=== PATIENT | male | born 1985 ===

== ENCOUNTER → 2020-12-31 06:30 | Outpatient (CLI) | payer OTHER ==
[~2020-12-31 06:30] MED LIST: NABUMETONE750 MG PO
== END | disposition home or self-care (01) ==
LOC: LAB 06:30
PROVIDERS: ATTEND Ophthalmology
DX: Z20.828 Contact with and (suspected) exposure to other viral communicable diseases (principal); R50.81 Fever presenting with conditions classified elsewhere; Z20.818 Contact with and (suspected) exposure to other bacterial communicable diseases